=== PATIENT | female | born 1970 | race Caucasian/White ===

== ENCOUNTER → 2017-07-01 | Outpatient (CLI) | payer OTHER ==
[~2017-07-01] MED LIST: LIOT5 PO; SYNT75TA PO; Z.0.BCPILL PO; ZYRT10TA12 PO
[2017-07-01 09:27] LABS: AUTOMATED NEUTROPHIL # 3.5 TH/MM3 (1.8-7.7); BASOPHIL % 0.6 % (0.0-2.0); EOSINOPHIL # 0.1 TH/MM3 (0-0.4); EOSINOPHIL % 2.1 % (0.0-4.0); HEMATOCRIT 36.7 % (35.0-46.0); HEMOGLOBIN 12.5 GM/DL (11.6-15.3); LYMPH % 22.4 % (9.0-44.0); LYMPHOCYTE # 1.1 TH/MM3 (1.0-4.8); MEAN CELL VOLUME 93.1 FL (80.0-100.0); MEAN CORPUSCULAR HEMOGLOBIN 31.6 PG (27.0-34.0); MEAN CORPUSCULAR HGB CONC 33.9 % (32.0-36.0); MEAN PLATELET VOLUME 8.3 FL (7.0-11.0); MONOCYTE # 0.4 TH/MM3 (0-0.9); NEUT % 67.9 % (16.0-70.0); PLATELET COUNT 203 TH/MM3 (150-450); RED BLOOD COUNT 3.94 MIL/MM3 (4.00-5.30); RED CELL DISTRIBUTION WIDTH 12.7 % (11.6-17.2); WHITE BLOOD COUNT 5.1 TH/MM3 (4.0-11.0)
[2017-07-01 09:32] LABS: BACTERIA, URINE RARE /hpf; BILIRUBIN, URINE NEG (NEG); BLOOD, URINE NEG (NEG); GLUCOSE,URINE NEG (NEG); KETONE, URINE NEG (NEG); MUCUS URINE FEW /lpf (OCC); NITRITE,URINE NEG (NEG); PH, URINE 5.5 (5.0-8.5); SQUAMOUS EPITHELIAL CELL URINE 1 /hpf (0-5); URINE COLOR YELLOW (YELLW/STRAW); URINE LEUKOCYTE ESTERASE NEG (NEG)
[2017-07-01 09:58] LABS: ALBUMIN 3.6 GM/DL (3.4-5.0); AST (GOT) 19 U/L (15-37); BICARBONATE 26.6 MEQ/L (21.0-32.0); BLOOD UREA NITROGEN 19 MG/DL (7-18); CALCIUM 8.6 MG/DL (8.5-10.1); CHLORIDE 109 MEQ/L (98-107); CREATININE 0.69 MG/DL (0.50-1.00); GLOMERULAR FILTRATION RATE 90 ML/MIN (>89); GLUCOSE,FASTING 92 MG/DL (74-99); SODIUM (NA) 142 MEQ/L (136-145)
[2017-07-01 09:59] LABS: ALT (GPT) 24 U/L (10-53); CHOLESTEROL 149 MG/DL (120-200)
[2017-07-01 10:24] LABS: ALKALINE PHOSPHATASE 63 U/L (45-117); CHOLESTEROL/ HDL RATIO 1.76 RATIO; FREE T4 0.89 NG/DL (0.76-1.46); HDL CHOLESTEROL 84.3 MG/DL (40.0-60.0); LDL CHOLESTEROL 60 MG/DL (0-99); TOTAL BILIRUBIN ADULT 0.4 MG/DL (0.2-1.0); TOTAL PROTEIN 6.5 GM/DL (6.4-8.2); TRIGLYCERIDES 25 MG/DL (42-150)
== END ==
LOC: CLAB 08:53
PROVIDERS: ATTEND Pediatrics Neonatal-Perinatal Medicine
DX: E03.4 Atrophy of thyroid (acquired) (principal); F41.1 Generalized anxiety disorder; R53.83 Other fatigue; E55.9 Vitamin D deficiency, unspecified; E83.51 Hypocalcemia; E04.1 Nontoxic single thyroid nodule; Z13.220 Encounter for screening for lipoid disorders
CPT/HCPCS: 36415; 80053; 80061; 81001; 82306; 82533; 82607; 84439; 84443; 85025

== ENCOUNTER → 2017-09-22 | Outpatient (CLI) | payer OTHER ==
[~2017-09-22] MED LIST changes: +LIOT5TAB3 PO; +SYNT88TA PO; +VENTAER INH
[2017-09-22 13:49] LABS: ALBUMIN 3.8 GM/DL (3.4-5.0); ALT (GPT) 35 U/L (10-53); AST (GOT) 21 U/L (15-37); AUTOMATED NEUTROPHIL # 2.9 TH/MM3 (1.8-7.7); BASOPHIL # 0.1 TH/MM3 (0-0.2); BASOPHIL % 1.1 % (0.0-2.0); BICARBONATE 26.2 MEQ/L (21.0-32.0); BLOOD UREA NITROGEN 16 MG/DL (7-18); C-REACTIVE PROTEIN LESS THAN 0.29 MG/DL (0.00-0.30); CALCIUM 8.2 MG/DL (8.5-10.1); CHLORIDE 108 MEQ/L (98-107); CHOLESTEROL 167 MG/DL (120-200); EOSINOPHIL # 0.2 TH/MM3 (0-0.4); EOSINOPHIL % 4.7 % (0.0-4.0); GLOMERULAR FILTRATION RATE 76 ML/MIN (>89); GLUCOSE,FASTING 88 MG/DL (74-99); HEMATOCRIT 42.6 % (35.0-46.0); HEMOGLOBIN 14.1 GM/DL (11.6-15.3); LYMPH % 28.1 % (9.0-44.0); LYMPHOCYTE # 1.4 TH/MM3 (1.0-4.8); MEAN CELL VOLUME 92.1 FL (80.0-100.0); MEAN CORPUSCULAR HEMOGLOBIN 30.5 PG (27.0-34.0); MEAN CORPUSCULAR HGB CONC 33.1 % (32.0-36.0); MEAN PLATELET VOLUME 9.3 FL (7.0-11.0); MONO % 5.9 % (0.0-8.0); MONOCYTE # 0.3 TH/MM3 (0-0.9); NEUT % 60.2 % (16.0-70.0); PLATELET COUNT 238 TH/MM3 (150-450); RED BLOOD COUNT 4.63 MIL/MM3 (4.00-5.30); RED CELL DISTRIBUTION WIDTH 12.7 % (11.6-17.2); SODIUM (NA) 141 MEQ/L (136-145); WHITE BLOOD COUNT 4.8 TH/MM3 (4.0-11.0)
[2017-09-22 13:57] LABS: ALKALINE PHOSPHATASE 53 U/L (45-117); CHOLESTEROL/ HDL RATIO 2.02 RATIO; HDL CHOLESTEROL 82.3 MG/DL (40.0-60.0); LDL CHOLESTEROL 77 MG/DL (0-99); TOTAL BILIRUBIN ADULT 0.4 MG/DL (0.2-1.0); TOTAL PROTEIN 7.1 GM/DL (6.4-8.2); TRIGLYCERIDES 39 MG/DL (42-150)
[2017-09-22 13:58] LABS: BACTERIA, URINE RARE /hpf; BILIRUBIN, URINE NEG (NEG); BLOOD, URINE NEG (NEG); GLUCOSE,URINE NEG (NEG); KETONE, URINE NEG (NEG); NITRITE,URINE NEG (NEG); SQUAMOUS EPITHELIAL CELL URINE 2 /hpf (0-5); URINE COLOR YELLOW (YELLW/STRAW); URINE LEUKOCYTE ESTERASE NEG (NEG)
[2017-09-22 17:09] LABS: HEMOGLOBIN A1C 5.2 % (4.3-6.0)
[2017-09-25 03:49] LABS: ENDOMYSIAL AB SCREEN ND (NEGATIVE); ENDOMYSIAL AB TITER ND (<1:5)
== END ==
LOC: PLAB 09:25
PROVIDERS: ATTEND Internal Medicine Gastroenterology
DX: R10.9 Unspecified abdominal pain (principal); K21.9 Gastro-esophageal reflux disease without esophagitis
CPT/HCPCS: 36415; 80053; 80061; 81001; 82784; 83036; 83516; 83690; 84443; 85025; 86038; 86140

== ENCOUNTER → 2017-09-28 | Outpatient (CLI) | payer OTHER ==
[~2017-09-28] VITALS: Ht 170.2 cm; Wt 74.5 kg
[~2017-09-28] MED LIST changes: +CHLORHEXIDINE GLUCONATE 2 % 1 PACK (2 CLOTHS) TOPICAL PRN; +DEXTROSE 5%-LACTATED RING INJ 1,000 ML IV SCH; +INSULIN HUMAN REGULAR 1,000 UNITS/10 ML VIAL SQ PRN; +LACTATED RINGER'S 1000 ML IV PRN; +LIDOCAINE HCL 1% PF 5 ML SYRINGE OTHER ONE; +METOPROLOL TARTRATE 25 MG TAB PO PRN; +POVIDONE IODINE 5% (ANTISEPSIS KIT) 4 APPLICATIONS EACH NARE PRN; +PROPOFOL 200 MG/20 ML AMP IV ONE; +SODIUM CHLORID 0.9% 500 ML IV PRN
--- NOTE | 2017-09-28 11:12 | GIPROC ---
[facility] [address] [facility]. [facility], [address] COLONOSCOPY PROCEDURE REPORT EXAM DATE: 09/28/2017 PATIENT NAME: Gretchen Ferrer MR #: [id number] BIRTHDATE: 1970 ENDOSCOPIST: Isha Jasmine MD ORDER #: [id number] ORACLE ERP ARCHITECT: Jenae Chavez and Lorri Padgett STATUS: outpatient INDICATIONS: The patient is a 47 yr old female here for a colonoscopy due to abdominla pin, strong family history of colon cancer =both parents PROCEDURE PERFORMED: Colonoscopy with biopsy MEDICATIONS: None and Per Anesthesia. PREP QUALITY: fair PREP TYPE:Other: ESTIMATED BLOOD LOSS: None CONSENT: The patient understands the risks and benefits of the procedure and understands that these risks include, but are not limited to: sedation, allergic reaction, infection, perforation and/or bleeding. Alternative means of evaluation and treatment include, among others: physical exam, x-rays, and/or surgical intervention. The patient elects to proceed with this endoscopic procedure. medical equipment was checked for proper function. Hand hygiene and appropriate measures for infection prevention was taken. After the risks, benefits and alternatives of the procedure were thoroughly explained, Informed consent was verified, confirmed and timeout was successfully executed by the treatment team. A digital exam revealed external hemorrhoids The Pentax EC-3490Li endoscope was introduced through the anus and advanced to the cecum, which was identified by both the appendix and ileocecal valve. The instrument was then slowly withdrawn as the colon was fully examined. COLON FINDINGS: Diverticulosis sigmoid,descending random biopsies from ascending and descending colon. Retroflexed views revealed internal hemorrhoids and Retroflexed views revealed small internal hemorrhoids The scope was then completely withdrawn from the patient and the procedure terminated. PROCEDURE WITHDRAWAL TIME:6minutes ADVERSE EVENTS: There were no complications. IMPRESSIONS: 1. Diverticulosis sigmoid,descending random biopsies from ascending and descending colon 2. Retroflexed views revealed internal hemorrhoids 3. Retroflexed views revealed small internal hemorrhoids 4. Revealed external hemorrhoids RECOMMENDATIONS: 1. Await biopsy results. Biopsy results will not be ready for 7-10 days. If you don't hear from us in two weeks, call our office for results. 2. Benefiber 2 tsp daily 3. Probiotics from any [email or web address] or health food store 4. Yearly rectal exams RECALL: Return 3 years Colonoscopy Isha Jasmine MD eSigned: Isha Jasmine MD 09/28/2017 11:12 AM cc: Ishmael Gama
--- NOTE | 2017-09-28 11:16 | GIPROC ---
[facility] [address] [facility]. [facility], [address] EGD PROCEDURE REPORT EXAM DATE: 09/28/2017 PATIENT NAME: Gretchen Ferrer MR #: [id number] BIRTHDATE: 1970 ATTENDING: Isha Jasmine MD ORDER #: [id number] GRANTS ADMINISTRATOR: Jenae Chavez and Lorri Padgett STATUS: outpatient INDICATIONS: The patient is a 47 yr old female here for an EGD due to abdominal pain PROCEDURE PERFORMED: EGD w/ biopsy MEDICATIONS: None and Per Anesthesia. TOPICAL ANESTHETIC: none CONSENT: The patient understands the risks and benefits of the procedure and understands that these risks include, but are not limited to: sedation, allergic reaction, infection, perforation and/or bleeding. Alternative means of evaluation and treatment include, among others: physical exam, x-rays, and/or surgical intervention. The patient elects to proceed with this endoscopic procedure. medical equipment was checked for proper function. Hand hygiene and appropriate measures for infection prevention was taken. After the risks, benefits and alternatives of the procedure were thoroughly explained, Informed consent was verified, confirmed and timeout was successfully executed by the treatment team. The patient was anesthetized with topical anesthesia and the EC-3490Li (Pedi C) endoscope was introduced through the mouth and advanced to the second portion of the duodenum. Retroflexed views revealed a hiatal hernia The gastroscope was then slowly withdrawn and removed. Normal duodenum-biopsy from bulb and second portion-biopsy to r/o celiac disease gastritis antrum-biopsy irregular z line-biopsy. ADVERSE EVENTS: There were no complications. IMPRESSIONS: 1. Normal duodenum-biopsy from bulb and second portion-biopsy to r/o celiac disease gastritis antrum-biopsy irregular z line-biopsy 2. Retroflexed views revealed a hiatal hernia RECOMMENDATIONS: 1. Await biopsy results. Biopsy results will not be ready for 7-10 days. If you don't hear from us in two weeks, call our office for biopsy results. 2. Anti-reflux regimen 3. Continue PPI 4. Avoid NSAIDS PATIENT CONDITION: stable DISPOSITION: Home REPEAT EXAM: Return 3 years EGD Isha Bratu MD eSigned: Isha Jasmine MD 09/28/2017 11:15 AM cc: Ishmael Dickerson M.D.
[2017-09-28 11:35] VITALS: BP 128/62; PULSE 66; RESP 18; TEMP 97.4; O2SAT 100
== END ==
LOC: HSDC 08:31
PROVIDERS: ATTEND Internal Medicine Gastroenterology
DX: R10.9 Unspecified abdominal pain (principal); Z80.0 Family history of malignant neoplasm of digestive organs; K57.30 Diverticulosis of large intestine without perforation or abscess without bleeding; K64.8 Other hemorrhoids; K64.4 Residual hemorrhoidal skin tags; K31.7 Polyp of stomach and duodenum
CPT/HCPCS: 00813; 43239; 45380; 88305; 88312; J7120